=== PATIENT | male | born 1985 | race Caucasian/White ===

== ENCOUNTER 2020-09-18 23:58 | Emergency (ER) | payer SELFPAY ==
[2020-09-19] MEDS ORDERED: Fentanyl 100 MCG/2 ML VIAL ONE (00:06)
[2020-09-19] MEDS ORDERED: Boostrix 0.5 ML (Tdap) VIAL ONE (00:10)
[2020-09-19] MEDS ORDERED: Silver Sulfadiazine 50 GM TUBE ONE ×2 (00:24→02:47)
[2020-09-19] MEDS ORDERED: Ketorolac Tromethamine 30 MG/ML VIAL ONE (00:41)
[2020-09-19] MEDS ORDERED: Nicotine 14 MG PATCH ONE (02:18)
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
== END 2020-09-19 03:09 | disposition home or self-care (01) ==
LOC: ERS 23:58
DX: T23.252A Burn of second degree of left palm, initial encounter (principal); T23.251A Burn of second degree of right palm, initial encounter; T23.231A Burn of second degree of multiple right fingers (nail), not including thumb, initial encounter; T23.232A Burn of second degree of multiple left fingers (nail), not including thumb, initial encounter; T24.222A Burn of second degree of left knee, initial encounter; T24.221A Burn of second degree of right knee, initial encounter; T21.14XA Burn of first degree of lower back, initial encounter; X08.8XXA Exposure to other specified smoke, fire and flames, initial encounter; Z23 Encounter for immunization
CPT/HCPCS: 71045; 90471; 90715; 96374; 96375; J1885; J3010